=== PATIENT | female | born 1975 | race Caucasian/White ===

== ENCOUNTER → 2018-04-16 | Outpatient (CLI) | payer OTHER ==
[2018-04-16 09:10] LABS: BASOPHILS # (AUTO) 0.02 x10^3/uL (0-0.1); BASOPHILS % (AUTO) 0 % (0-1); EOSINOPHILS # (AUTO) 0.22 x10^3/uL (0-0.4); EOSINOPHILS % (AUTO) 4 % (1-7); LYMPHOCYTES # (AUTO) 1.25 x10^3/uL (1-3.4); LYMPHOCYTES % (AUTO) 24 % (22-44); MD NO; MEAN CORPUSCULAR HEMOGLOBIN 29.8 pg (27.0-34.8); MEAN CORPUSCULAR HGB CONC 33.4 g/dL (32.4-35.8); MEAN CORPUSCULAR VOLUME 89.1 fL (80-100); MEAN PLATELET VOLUME 7.5 fL (7.4-10.4); MONOCYTES # (AUTO) 0.44 x10^3/uL (0.2-0.8); MONOCYTES % (AUTO) 9 % (2-9); NEUTROPHILS % (AUTO) 63 % (42-75); PLATELET COUNT 289 x10^3/uL (130-400); RED BLOOD COUNT 4.45 x10^6/uL (3.82-5.3); RED CELL DISTRIBUTION WIDTH 14.7 % (9.6-15.2)
[2018-04-16 09:19] LABS: ALANINE AMINOTRANSFERASE 31 U/L (12-78); ALBUMIN 3.8 g/dL (3.4-5.0); ANION GAP 6 mmol/L (5-15); CALCIUM 8.8 mg/dL (8.5-10.1); CHLORIDE 109 mmol/L (98-107); CHOLESTEROL, TOTAL 247 mg/dL (140-239); CREATININE 0.59 mg/dL (0.55-1.02)
[2018-04-16 09:23] LABS: ALKALINE PHOSPHATASE 77 U/L (45-117); BILIRUBIN,TOTAL 0.7 mg/dL (0.2-1.0); CHOL/HDL RATIO 2.9; HDL CHOL % 34 % (28-40); HDL CHOLESTEROL (DIRECT) 85 mg/dL (40-60); LDL CHOLESTEROL,CALCULATED 147 mg/dL (54-169); LDL/HDL RATIO 1.7 (0.5-3.0); TOTAL PROTEIN 7.5 g/dL (6.4-8.2); TRIGLYCERIDES 75 mg/dL (50-200); VLDL CHOLESTEROL 15 mg/dL (0-25)
== END | disposition home or self-care (01) ==
LOC: LAB 08:54
PROVIDERS: ATTEND Physician Assistant
DX: Z00.01 Encounter for general adult medical examination with abnormal findings (principal); Z80.41 Family history of malignant neoplasm of ovary
CPT/HCPCS: 36415; 80053; 80061; 82306; 85025; 86304

== ENCOUNTER → 2018-09-20 | Outpatient (CLI) | payer BC | END | disposition home or self-care (01) | LOC: CFH 09:23 | PROVIDERS: ATTEND Specialist | DX: N88.8 Other specified noninflammatory disorders of cervix uteri (principal) | CPT/HCPCS: 76830 ==

== ENCOUNTER → 2019-11-02 | Outpatient (CLI) | payer BC | END | disposition home or self-care (01) | LOC: CFH 08:20 | PROVIDERS: ATTEND Specialist | DX: N88.8 Other specified noninflammatory disorders of cervix uteri (principal); N92.0 Excessive and frequent menstruation with regular cycle; Z80.41 Family history of malignant neoplasm of ovary | CPT/HCPCS: 76830 ==

== ENCOUNTER 2020-01-05 09:00 | Outpatient (CLI) | payer BC | END 2020-01-05 23:59 | disposition home or self-care (01) | LOC: CFH 09:00 | PROVIDERS: ATTEND Specialist | DX: Z12.31 Encounter for screening mammogram for malignant neoplasm of breast (principal) | CPT/HCPCS: 77063; 77067 ==

== ENCOUNTER 2020-04-23 10:02 | Emergency (ER) | payer BC, OTHER ==
[~2020-04-23] VITALS: Ht 157.5 cm; Wt 92.7 kg
--- NOTE | 2020-04-23 10:59 | NUR ---
OFF FLOOR TO RADIOLOGY
[2020-04-23 11:08] LABS: BASOPHILS % (AUTO) 0 % (0-1); EOSINOPHILS % (AUTO) 2 % (1-7); LYMPHOCYTES % (AUTO) 14 % (22-44); MEAN CORPUSCULAR HEMOGLOBIN 29.8 pg (27.0-34.8); MEAN CORPUSCULAR HGB CONC 33.1 g/dL (32.4-35.8); MEAN PLATELET VOLUME 8.2 fL (7.4-10.4); MONOCYTES % (AUTO) 7 % (2-9); NEUTROPHILS % (AUTO) 76 % (42-75); PLATELET COUNT 257 x10^3/uL (130-400); RED BLOOD COUNT 4.76 x10^6/uL (3.82-5.3); RED CELL DISTRIBUTION WIDTH 13.6 % (9.6-15.2)
[2020-04-23 11:10] LABS: MD NO
[2020-04-23 11:16] LABS: ANION GAP 9 mmol/L (5-15); CALCIUM 8.7 mg/dL (8.5-10.1); CHLORIDE 108 mmol/L (98-107); CREATININE 0.57 mg/dL (0.55-1.02)
[2020-04-23 11:17] LABS: ALANINE AMINOTRANSFERASE 27 U/L (12-78); ALBUMIN 3.8 g/dL (3.4-5.0)
[2020-04-23 11:21] LABS: ALKALINE PHOSPHATASE 72 U/L (45-117); BILIRUBIN,TOTAL 0.7 mg/dL (0.2-1.0); TOTAL PROTEIN 7.8 g/dL (6.4-8.2)
--- NOTE | 2020-04-23 11:55 | NUR ---
PT SILL OFF THE FLOOR. AWAITING RETURN TO ED.
--- NOTE | 2020-04-23 12:30 | NUR ---
RETURNED FROM ULTRASOUND
[2020-04-23 12:50] LABS: MICROSCOPIC NOT IND
--- NOTE | 2020-04-23 13:22 | NUR ---
PT C/O LOOSE STOOLS, NAUSEA, CRAPS, LOW BACK PAIN AND BLOATING. PT STATES THIS HAS BEEN GOING ON SINCE THURSDAY. PT STATES SHE HAS NOT EXPERIENCED THIS BEFORE. PT DENIES VOMITING.
[2020-04-23 13:26] VITALS: BP 151/93
--- NOTE | 2020-04-23 13:27 | NUR ---
PT RESTING ON ED GURNEY. AWAITING FURTHER ORDERS.
== END 2020-04-23 14:24 | disposition home or self-care (01) ==
LOC: ED 10:30
DX: R10.13 Epigastric pain (principal); R10.11 Right upper quadrant pain; R11.0 Nausea; Z90.710 Acquired absence of both cervix and uterus; Z98.51 Tubal ligation status
CPT/HCPCS: 36415; 76700; 76830; 80053; 81003; 83690; 84703; 85025; 99285

== ENCOUNTER → 2020-05-07 | Outpatient (CLI) | payer BC ==
[~2020-05-07] MED LIST: CALC1TAB2 PO; FLUT9.9S NAS; LORA-247 PO; MELO15TA24 PO; WOMAN'S ONE A DAY PO
== END | disposition home or self-care (01) ==
LOC: STAR 08:39 → EDSTATUS 09:00
PROVIDERS: ATTEND Specialist
DX: Z01.812 Encounter for preprocedural laboratory examination (principal); Z20.828 Contact with and (suspected) exposure to other viral communicable diseases; R10.2 Pelvic and perineal pain; N92.0 Excessive and frequent menstruation with regular cycle
CPT/HCPCS: 87635

== ENCOUNTER 2020-08-17 14:11 | Emergency (ER) | payer BC ==
[~2020-08-17] VITALS: Ht 160 cm; Wt 92.3 kg
--- NOTE | 2020-08-17 14:17 | NUR ---
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
--- NOTE | 2020-08-17 14:36 | NUR ---
PT STATES BP IS USUALLY AROUND 120s/70s
--- NOTE | 2020-08-17 15:22 | NUR ---
AT BEDSIDE FOR ASSESSMENT.
--- NOTE | 2020-08-17 15:53 | NUR ---
MED REQUESTED FROM PHARMACY. LAB AT BEDSIDE.
[2020-08-17] MEDS ORDERED: LOSARTAN 50MG TABLET PO ONE (16:00)
--- NOTE | 2020-08-17 16:04 | NUR ---
OK TO GIVE [place] WITH BP OF 135/78. [employer] KEEPER PER AUG. PT RESTING COMFORTABLY ON GURNEY.
[2020-08-17 16:09] LABS: BASOPHILS % (AUTO) 1 % (0-1); EOSINOPHILS % (AUTO) 1 % (1-7); LYMPHOCYTES % (AUTO) 27 % (22-44); MEAN CORPUSCULAR HEMOGLOBIN 29.6 pg (27.0-34.8); MEAN CORPUSCULAR HGB CONC 33.5 g/dL (32.4-35.8); MONOCYTES % (AUTO) 8 % (2-9); NEUTROPHILS % (AUTO) 63 % (42-75); PLATELET COUNT 262 x10^3/uL (130-400); RED BLOOD COUNT 4.61 x10^6/uL (3.82-5.3); RED CELL DISTRIBUTION WIDTH 13.8 % (9.6-15.2)
[2020-08-17 16:10] LABS: MD NO
[2020-08-17 16:19] LABS: ANION GAP 6 mmol/L (5-15); CALCIUM 9.4 mg/dL (8.5-10.1); CHLORIDE 107 mmol/L (98-107); CREATININE 0.69 mg/dL (0.55-1.02)
--- NOTE | 2020-08-17 16:36 | NUR ---
ALL RESULTS ARE BACK AT THIS TIME. CHART UP FOR RECHECK.
[2020-08-17 16:39] VITALS: BP 119/77
--- NOTE | 2020-08-17 17:28 | NUR ---
MD AT BEDSIDE TO UPDATE PT ON POC.
== END 2020-08-17 17:55 | disposition home or self-care (01) ==
LOC: ED 17:01
DX: E86.0 Dehydration (principal); I10 Essential (primary) hypertension; R42 Dizziness and giddiness; R00.0 Tachycardia, unspecified; I21.9 Acute myocardial infarction, unspecified; R94.31 Abnormal electrocardiogram [ECG] [EKG]; R51.9 Headache, unspecified
CPT/HCPCS: 36415; 80048; 85025; 93005; 99284; 99285

== ENCOUNTER → 2021-02-08 | Outpatient (CLI) | payer BC | END | disposition home or self-care (01) | LOC: CFH 11:42 | PROVIDERS: ATTEND Specialist | DX: Z12.31 Encounter for screening mammogram for malignant neoplasm of breast (principal) | CPT/HCPCS: 77063; 77067 ==